=== PATIENT | male | born 1990 | race Two or more races ===

== ENCOUNTER 2024-10-15 22:08 | Emergency (ER) | payer MEDICAID, SELFPAY ==
[2024-10-15 22:09] VITALS: BMI 31.9
[2024-10-15 23:15] VITALS: BP 155/103; PULSE 73; RESP 16; TEMP 37.1; O2SAT 96
[2024-10-16] MEDS: AMOXICILLIN/POT CLAV 875 TABLET 1 TAB PO (00:07)
[2024-10-16] MEDS: HYDROcodone/APAP 5/325 TABLET 1 TAB PO (00:07)
[2024-10-16 00:09] VITALS: BP 154/98; PULSE 77; RESP 18; TEMP 36.8; O2SAT 98
--- NOTE | 2024-10-16 04:07 | PD.EDDENTL ---
ED Dental RME/HPI General Chief complaint: Dental/Oral/Throat Stated complaint: RIGHT LOWER TOOTHACHE FOR 2 DAYS Time Seen by Provider: 10/15/24 23:31 Arrival date/time: 10/15/24 22:08 33M with no significant PMH presents to ED with 2 days of R lower dental pain and cheek swelling. Patient doesn't see dentist often due to no insurance. Limitations: no limitations Related Data Previous Rx's ?Medication ?Instructions ?Recorded naproxen 500 mg tablet (Naprosyn) 500 mg PO BID PRN pain #30 tabs 10/14/22 amoxicillin 875 mg-potassium 1 tab PO BID 7 days #14 tabs 10/15/24 clavulanate 125 mg tablet Allergies Allergy/AdvReac Type Severity Reaction Status Date / Time No Known Allergies Allergy Verified 10/15/24 22:09 Review of Systems Review of Systems Systems Reviewed: All systems reviewed, normal except as documented Constitutional Constitutional: Reports system reviewed and no additional complaints, except as documented, Denies fever(s) and Denies headache(s) ENT Ears, Nose, Mouth, and Throat: Reports as per HPI, Reports dental pain, Denies disequilibrium, Reports facial pain and Denies headache(s) Cardiovascular Cardiovascular: Reports system reviewed and no additional complaints, except as documented, Denies chest pain and Denies dyspnea Respiratory Respiratory: Reports system reviewed and no additional complaints, except as documented, Denies cough and Denies dyspnea Gastrointestinal Gastrointestinal: Reports system reviewed and no additional complaints, except as documented, Denies abdominal pain, Denies nausea and Denies vomiting Neurologic Neurologic: Reports system reviewed and no additional complaints, except as documented, Denies confusion, Denies disequilibrium and Denies headache(s) Psychiatric Psychiatric: Denies confusion Past Medical History Social History SMOKING STATUS: Never smoker SUBSTANCE USE: does not use ED Exam General Limitations: Present no limitations General appearance: Present alert and in no apparent distress Head Head exam: Present atraumatic Eye Eye exam: Present normal appearance, PERRL and EOMI ENT ENT exam: Present normal oropharynx and mucous membranes moist Expanded ENT Exam Teeth exam: Present gingival swelling and other (R cheek swelling) Neck Neck exam: Present normal inspection, full ROM and trachea midline Chest Chest inspection: Present normal inspection and symmetric chest wall rise Respiratory Respiratory exam: Present normal lung sounds bilaterally Cardiovascular Cardiovascular exam: Present regular rate, normal rhythm and normal heart sounds Abdominal Exam Abdominal exam: Present soft and normal bowel sounds Extremities Exam Extremities exam: Present normal inspection and full ROM Back Exam Back exam: Present normal inspection and full ROM Neurological Exam Neurological exam: Present alert, oriented X3 and CN II-XII intact Psychiatric Psychiatric exam: Present normal affect and normal mood Skin Skin exam: Present warm, dry, intact and normal color Course Quality Measures none Orders Category Date Time Status Amoxicillin/Pot Clav 875 [Augmentin 875] Med 10/15/24 23:31 Discontinued 1 tab PO X1 ONE HYDROcodone*/APAP 5/325 [[place] 5/325] Med 10/15/24 23:31 Discontinued 1 tab PO X1 ONE Vital Signs Vital signs: Vital Signs Temperature 98.8 F 10/15/24 23:15 Pulse Rate 73 10/15/24 23:15 Respiratory Rate 16 10/15/24 23:15 Blood Pressure 155/103 H 10/15/24 23:15 Pulse Oximetry (%) 96 10/15/24 23:15 Oxygen Delivery Method Room Air 10/15/24 23:15 O2 at 96% on RA and WNLs Dental / Oral MDM Narrative MDM Narrative:: 33M with no significant PMH presents to ED with 2 days of R lower dental pain and cheek swelling. Patient doesn't see dentist often due to no insurance. Physical exam reveals gingival and cheek swelling. Patient is afebrile, calm, and alert. Meds and estate planning counselor given. Patient data External records reviewed:: [facility] previous records Clinical information provided by:: patient Social determinants that could affect healthcare access:: none Patient has the following chronic illnesses:: none How is presenting disease/condition affected by chronic disease/condition?: no chronic disease Evaluation data The following diagnostics were reviewed and interpreted by me:: other (specify) (none) Lab and/or radiology exams considered but not ordered:: not ordered Interpretation Summary: n/a Medications / Prescriptions Medications or Prescriptions considered but not ordered:: ordered Medication administrations:: Medication Administration History Discontinued Medications Hydrocodone Bitart/Acetaminophen (Hydrocodone/Apap 5/325 Tablet) 1 tab PO X1 ONE Stop: 10/15/24 23:32 Last Admin: 10/16/24 00:07 Dose: 1 tab Documented By: Amoxicillin/Clavulanate Potassium (Amoxicillin/Pot Clav 875 Tablet) 1 tab PO X1 ONE Stop: 10/15/24 23:32 Last Admin: 10/16/24 00:07 Dose: 1 tab Documented By: MC above Consultations Consultation(s) initiated? (list below): No Diagnosis Dental Differential Diagnosis: gingival abscess, dental caries, toothache, dental abscess, fracture of tooth and aphthous ulcer Most likely diagnosis given after review of the tests above:: dental abscess Admission Indicated Admission indicated?: not indicated Admission Request Was there a request for admission?: No Disposition Plan Disposition Plan: Discharge Discharge Attestation Discharge Attestation: The patient and all family members were given an opportunity to ask questions and understood the discharge instructions. Discharge instructions specifically effects, indications for sooner follow up or return to the emergency department, and the expected course of current diagnosis. Patient condition: Stable Discharge Plan Plan Patient Disposition: HOME (Self Care) Discharge Disposition comment: Stable Prescriptions/Referrals Prescriptions/Med Rec: New amoxicillin-pot clavulanate 875-125 mg tablet 1 tab PO BID 7 Days Qty: 14 0RF No Action naproxen [Naprosyn] 500 mg tablet 500 mg PO BID PRN (Reason: pain) Qty: 30 0RF Problem List Clinical Impression: Dental abscess Patient/Caregiver Discharge Instructions Education Materials: ED Dental Abscess Additional Instructions: Please follow-up with PCP within 24-48 hours and return immediately if symptoms worsen. See dentist soon. Print Language: [place] Stand Alone Forms: Patient Portal Info Letter JEN/MIKALA Supervising Physician JEN/MIKALA Supervising Physician: Dr. Veras
== END 2024-10-16 00:16 | disposition home or self-care (01) ==
PROVIDERS: Emergency Provider Emergency Medicine
DX: K04.7 Periapical abscess without sinus (principal)
CPT/HCPCS: 99283; A9270